=== PATIENT | female | born 1990 | race Caucasian/White ===

== ENCOUNTER → 2016-10-26 | Outpatient (CLI) | payer OTHER ==
[~2016-10-26] MED LIST: ALBUTEROL17 GM; AMOXICILLIN PO; AMOXICILLIN500 M1 PO; AMOXICILLIN875 MG PO; AUGMENTIN875 MG PO; AZO BLADDER CO300 MG; BACITRACIN30 GM TOP; BACLOFEN10 MG PO; BENADRYL25 MG PO; BENZONATATE PO; BIRTH CONTROL RING; BUSPAR PO; CIPRO PO; CLARITIN; CLARITIN D; CLARITIN10 MG PO; DHA COMPLETE200 MG PO; DOLOBID; FLEXERIL PO; FLEXERIL10 MG PO; FLONASE 0.05% N16 G1; FLONASE 0.05% N16 GM; KEFLEX500 M2 PO; LEVOTHROID25 MCG; LEVOXYL112 MC1; LIDOCAINE VISCOU1 ML; MUCINEX D ER T1 EACH PO; MUCINEX100 MG/5 M PO; NO MEDICATIONS; PREDNISONE PO; PRENATAL1 TA1; PRENATAL1 TA1 PO; PRINCIPEN500 M1 PO; PYRIDIUM PO; RHINOCORT7 GM 200 D; ROBITUSSIN100 MG/51 PO; SUDAFED; SUDAFED PO; TESSALON200 MG PO; TIROSINT25 MCG PO; VISTARIL PO; VOLTAREN75 MG PO; ZITHROMAX; ZOFRAN ODT4 MG PO; ZYRTEC10 M2 PO
[2016-10-26 14:26] LABS: ALBUMIN SERUM 4.2 g/dL (3.5-5.0); BILIRUBIN, DIRECT 0.1 mg/dL (0.0-0.2); BILIRUBIN,INDIRECT 0.6 mg/dL (0.0-0.9); BILIRUBIN,TOTAL 0.7 mg/dL (0.2-2.0); PROTEIN TOTAL SERUM 7.6 g/dL (6.0-8.3)
== END | disposition home or self-care (01) ==
LOC: SLAB 13:46
PROVIDERS: Psychiatry & Neurology Psychiatry
DX: F31.81 Bipolar II disorder (principal)
CPT/HCPCS: 36415; 80076; 84443

== ENCOUNTER → 2016-12-22 | Outpatient (CLI) | payer OTHER | END | disposition home or self-care (01) | LOC: SLAB 11:59 | DX: F31.81 Bipolar II disorder (principal) | CPT/HCPCS: 36415; 84443 ==